=== PATIENT | female | born 1995 | race Hispanic/Latino ===

== ENCOUNTER 2018-06-11 01:18 | Emergency (ER) | payer OTHER ==
[2018-06-11 01:34] LABS: APPEARANCE,URINE Clear (CLEAR); BILIRUBIN,URINE Negative (NEGATIVE); COLOR,URINE Yellow (YELLOW); GLUCOSE, URINE (UA) >=1000 mg/dL (NEGATIVE); KETONES,URINE Negative (NEGATIVE); LEUKOCYTE ESTERASE ,URINE Negative (NEGATIVE); NITRATE,URINE Negative (NEGATIVE); OCCULT BLOOD,URINE Trace (NEGATIVE); PH,URINE 5.5 (5.0-8.0); PROTEIN,URINE Negative (NEGATIVE); UROBILINOGEN,URINE 0.2 mg/dL (0.2-1.0)
[2018-06-11 01:37] LABS: HCG,QUAL RESULT NEGATIVE (NEGATIVE)
[2018-06-11 02:04] LABS: RBC,URINE 0-1 /HPF (0-1); WBC,URINE 0-1 /HPF (0-1)
[2018-06-11 02:05] LABS: BACTERIA,URINE Rare /HPF (None Seen)
[2018-06-11 02:20] LABS: BASOPHILS % (AUTO) 0.7 % (0.0-5.0); EOSINOPHILS % (AUTO) 3.2 % (0.0-8.0); HEMATOCRIT 41.3 % (36-48); LYMPHOCYTES % (AUTO) 32.6 % (21.0-51.0); MEAN CORPUSCULAR HEMOGLOBIN 29.6 pg (27.0-33.0); MEAN CORPUSCULAR HGB CONC 34.7 g/dL (32.0-36.0); MEAN CORPUSCULAR VOLUME 85.4 fL (79-99); MONOCYTES % (AUTO) 7.6 % (3.0-13.0); NEUTROPHILS % (AUTO) 55.9 % (40.0-77.0); NUCLEATED RED BLOOD CELLS 0.1 % (0.0-0.19); PLATELET COUNT (AUTO) 309 K/uL (130-400); RED BLOOD CELL COUNT(AUTO) 4.84 MIL/uL (4.00-5.50); RED CELL DISTRIBUTION WIDTH 13.1 % (11.0-15.5); WHITE BLOOD COUNT (AUTO) 10.3 K/uL (4.8-10.8)
[2018-06-11 02:49] LABS: CREATININE 0.8 mg/dL (0.5-1.5)
[2018-06-11] MEDS ORDERED: INSULIN HUMULIN R 100 UNIT/ML 3ML ONE (03:43)
== END 2018-06-11 04:31 | disposition home or self-care (01) ==
LOC: EDH 01:18
DX: R07.89 Other chest pain (principal); M79.602 Pain in left arm; M79.605 Pain in left leg; R11.0 Nausea; R06.2 Wheezing; E11.9 Type 2 diabetes mellitus without complications; I10 Essential (primary) hypertension; E78.5 Hyperlipidemia, unspecified; E07.9 Disorder of thyroid, unspecified; Z72.0 Tobacco use
CPT/HCPCS: 36415; 80048; 81001; 81025; 82948; 85025; 93005; 96374; 99285; J1815

== ENCOUNTER 2018-09-02 22:49 | Emergency (ER) | payer OTHER ==
[2018-09-02] MEDS ORDERED: SULFAMETHOX-TMP DS 800/160 TAB ONE (23:53)
== END 2018-09-03 00:15 | disposition home or self-care (01) ==
LOC: EDH 22:49
DX: L02.416 Cutaneous abscess of left lower limb (principal); E11.9 Type 2 diabetes mellitus without complications; E07.9 Disorder of thyroid, unspecified; Z79.4 Long term (current) use of insulin
CPT/HCPCS: 81025

== ENCOUNTER → 2024-10-16 | Outpatient (CLI) | payer MEDICAID ==
[~2024-10-16] MED LIST: SEMA1PEN3 SQ
--- NOTE | 2024-10-16 11:27 | HMCIMG ---
CHEST 2VWS REASON: Bariatric surgery status COMPARISON: None FINDINGS: Two views of the chest were obtained. Lungs are clear. Heart size is normal. There is no pulmonary vascular congestion. Mediastinum and bony thorax appear unremarkable. IMPRESSION: No acute cardiopulmonary process
--- NOTE | 2024-10-16 13:35 | EKG ---
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
== END | disposition home or self-care (01) ==
LOC: RAH 10:15
PROVIDERS: ATTEND Surgery
DX: Z98.84 Bariatric surgery status (principal)
CPT/HCPCS: 71046; 93005